=== PATIENT | male | born 1995 | race Caucasian/White ===

== ENCOUNTER 2017-06-23 17:44 | Emergency (ER) | payer MEDICAID ==
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
[2017-06-23 18:00] VITALS: BMI 25.0
[2017-06-23 18:13] VITALS: RESP 18; TEMP 99.3; O2SAT 100
[2017-06-23 19:18] LABS: BASO # 0.01 K/mm3 (0.0-2.0); BASO % 0.2 % (0.0-3.0); EOS # 0.1 (0.0-0.7); EOS % 0.8 % (1.5-5.0); GRAN # 4.75 (1.4-6.5); GRAN % 76.4 % (50.0-68.0); HEMOGLOBIN 15.1 g/dL (14.0-18.0); LYMPH % 16.6 % (22.0-35.0); MEAN CELL VOLUME 78.6 fl (80.0-105.0); MEAN CORPUSCULAR HGB CONC 34.3 g/dl (31.0-37.0); MEAN PLATELET VOLUME 10.3 fl (7.0-11.0); MONO # 0.4 (0.1-0.6); RBC 5.6 10^6/uL (3.5-6.1); RED CELL DISTRIBUTION WIDTH 13.6 % (11.5-14.5); WHITE BLOOD COUNT 6.2 10^3/ul (4.5-11.0)
[2017-06-23 19:24] LABS: ACETAMINOPHEN < 10.0 ug/ml (10.0-20.0); SALICYLATE < 1 mg/dL (2.0-20.0)
[2017-06-23 19:26] LABS: ALB/GLOB RATIO 1.3 (1.1-1.8); ALBUMIN 4.7 g/dL (3.0-4.8); ALT/SGPT 63 U/L (7-56); AST/SGOT 39 U/L (17-59); BLOOD UREA NITROGEN 14 mg/dL (7-21); CALCIUM 9.8 mg/dL (8.4-10.5); GFR AFRICAN-AMERICAN > 60; GFR NON-AFRICAN AMERICAN > 60
[2017-06-23 19:40] LABS: URINE BILIRUBIN NEGATIVE (NEGATIVE); URINE BLOOD NEGATIVE (NEGATIVE); URINE GLUCOSE (UA) NEGATIVE (NEGATIVE); URINE LEUKOCYTE ESTERASE NEGATIVE Leu/uL (NEGATIVE); URINE PROTEIN NEGATIVE mg/dL (<30 mg/dL); URINE UROBILINOGEN 0.2 E.U./dL (<1 E.U./dL)
[2017-06-23 19:48] LABS: URINE APPEARANCE CLEAR (CLEAR); URINE COLOR YELLOW (YELLOW)
[2017-06-23 19:56] LABS: BARBITURATES, UR NEGATIVE (NEGATIVE); BENZODIAZEPINES, UR NEGATIVE (NEGATIVE); OPIATES, UR NEGATIVE (NEGATIVE); PHENCYCLIDINE, UR NEGATIVE (NEGATIVE)
[2017-06-23 20:34] VITALS: BP 110/89; PULSE 95
== END 2017-06-23 20:10 | disposition home or self-care (01) ==
LOC: ED 17:44
DX: F43.9 Reaction to severe stress, unspecified (principal)

== ENCOUNTER 2017-11-03 21:38 | Emergency (ER) | payer MEDICAID ==
[2017-11-03 21:50] VITALS: BMI 25.5
--- NOTE | 2017-11-03 22:07 | ED PDOC ---
Arrival/HPI - General Chief Complaint: Weakness/Neurological Deficit Time Seen by Provider: 11/03/17 21:50 Historian: Patient - History of Present Illness Narrative History of Present Illness (Text): 11/03/17 22:07 Ashish Malin is a 22 year old male, electronic cigarette smoker, with no significant past medical history, who presents to the ED complaining of dizziness. Patient states he has been feeling increasingly dizzy, nauseous, and light-headed for the past 2 days. Patient notes he had 1 syncopal episode yesterday while at work and 2 near-syncopal episodes today. Patient also notes he has been feeling anxious and reports tingling sensation in his fingers. Patient denies any fever, chills, chest pain, shortness of breath, abdominal pain, vomiting, diarrhea, urinary symptoms, back pain, neck pain, headache, or any other complaints. Time/Duration: < week (2 days) Symptom Onset: Gradual Symptom Course: Unchanged Activities at Onset: Light Context: Home Past Medical History - Provider Review Nursing Documentation Reviewed: Yes - Past History Past History: No Previous - Infectious Disease Hx of Infectious Diseases: None - Tetanus Immunization Tetanus Immunization: Unknown - Psychiatric Hx Depression: No Hx Emotional Abuse: No Hx Physical Abuse: No Hx Substance Use: No - Past Surgical History Past Surgical History: No Previous - Anesthesia Hx Anesthesia: No - Suicidal Assessment Feels Threatened In Home Enviroment: No Family/Social History - Physician Review Nursing Documentation Reviewed: Yes Family/Social History: Unknown Family HX Smoking Status: Never Smoked Hx Alcohol Use: No Hx Substance Use: No Hx Substance Use Treatment: No Allergies/Home Meds Allergies/Adverse Reactions: Allergies No Known Allergies Allergy (Verified 12/25/15 11:30) Home Medications: Home Meds Medication Instructions Recorded Confirmed No Known Home Med 11/04/17 11/04/17 Review of Systems - Physician Review All systems were reviewed & negative as marked: Yes - Review of Systems Constitutional: Other (+light-headedness) Eyes: Normal ENT: Normal Respiratory: Normal. absent: SOB, Cough Cardiovascular: Syncope, Other (+near-syncopal) Gastrointestinal: Nausea. absent: Abdominal Pain, Diarrhea, Vomiting Genitourinary Male: Normal. absent: Dysuria, Frequency, Hematuria, Urinary Output Changes Musculoskeletal: Normal. absent: Back Pain, Neck Pain Skin: Normal. absent: Rash Neurological: Dizziness, Other (+tingling in hands) Endocrine: Normal Hemo/Lymphatic: Normal Psychiatric: Normal Physical Exam Vital Signs Reviewed: Yes Vital Signs Temp Pulse Resp BP Pulse Ox 11/04/17 00:00 52 L 18 100/63 100 11/03/17 22:11 98 F 60 18 116/68 100 Temperature: Afebrile Blood Pressure: Normal Pulse: Regular Respiratory Rate: Normal Appearance: Positive for: Well-Appearing, Non-Toxic, Comfortable Pain Distress: None Mental Status: Positive for: Alert and Oriented X 3 - Systems Exam Head: Present: Atraumatic, Normocephalic Pupils: Present: PERRL Extroacular Muscles: Present: EOMI Conjunctiva: Present: Normal Mouth: Present: Moist Mucous Membranes Neck: Present: Normal Range of Motion. No: Meningeal Signs, MIDLINE TENDERNESS , Paraspinal Tenderness Respiratory/Chest: Present: Clear to Auscultation, Good Air Exchange. No: Respiratory Distress, Accessory Muscle Use Cardiovascular: Present: Regular Rate and Rhythm, Normal S1, S2. No: Murmurs Abdomen: No: Tenderness, Distention, Peritoneal Signs Back: Present: Normal Inspection. No: CVA Tenderness, Midline Tenderness, Paraspinal Tenderness Upper Extremity: Present: Normal Inspection. No: Cyanosis, Edema Lower Extremity: Present: Normal Inspection. No: Edema Neurological: Present: GCS=15, CN II-XII Intact, Speech Normal Skin: Present: Warm, Dry, Normal Color. No: Rashes Psychiatric: Present: Alert, Oriented x 3, Normal Insight, Normal Concentration Medical Decision Making ED Course and Treatment: 11/03/17 22:07 Impression: 22 year old male complaining of dizziness, nausea, light-headedness, and syncope. Plan: -- CT Head w/o contrast -- EKG -- Labs, troponin, alcohol level -- Urine drug screen -- IV fluids -- Zofran -- Reassess and disposition Prior Visits: Notes and results from previous visits were reviewed. Progress Notes: Reviewed EKG, NSR at [address]-segment elevations or depressions, no T-wave inversions, normal intervals. 11/04/17 00:11 CT Head reviewed, shows: BRAIN: Incidentally noted is cavum septum pellucidum. No hemorrhage. No significant white matter disease. VENTRICLES: Unremarkable. No ventriculomegaly. BONES/JOINTS: Unremarkable. No acute fracture. SOFT TISSUES: Unremarkable. SINUSES: Unremarkable as visualized. No acute sinusitis. MASTOID AIR CELLS: Unremarkable as visualized. No mastoid effusion. IMPRESSION: No acute findings. 11/04/17 01:12 On reevaluation the patient feels better and is in no acute distress. I have discussed the results and plan with the patient, who expresses understanding. Patient given the opportunity to ask question, all questions were answered and there is agreement with the plan to discharge the patient home. Patient is stable for discharge. Patient was instructed to follow up with physician/clinic in 1-2 days or return if symptoms persist/worsen or new concerning symptoms arise. - Lab Interpretations Lab Results: 11/03/17 23:09 11/03/17 23:09 Lab Results 11/03/17 23:31: Urine Opiates Screen Negative, Urine Methadone Screen Negative, Ur Barbiturates Screen Negative, Ur Phencyclidine Scrn Negative, Ur Amphetamines Screen Negative, U Benzodiazepines Scrn Negative, U Oth Cocaine Metabols Negative, U Cannabinoids Screen Negative 11/03/17 23:09: Alcohol, Quantitative < 10 11/03/17 23:09: Sodium 142, Potassium 3.9, Chloride 104, Carbon Dioxide 27, Anion Gap 16, BUN 11, Creatinine 0.7 L, Est GFR ( Amer) > 60, Est GFR ( Non-Af Amer) > 60, Random Glucose 79, Calcium 9.4, Total Bilirubin 0.2, AST 24, ALT 28, Alkaline Phosphatase 46, Troponin I < 0.01, Total Protein 7.9, Albumin 4.7, Globulin 3.2, Albumin/Globulin Ratio 1.5 11/03/17 23:09: WBC 4.5 D, RBC 4.97, Hgb 13.1 L D, Hct 38.5 L, MCV 77.5 L, MCH 26.4, MCHC 34.0, RDW 13.3, Plt Count 198, MPV 11.4 H, Gran % 36.8 L, Lymph % ( Auto) 53.8 H, [place] % (Auto) 5.6, Eos % (Auto) 2.9, Baso % (Auto) 0.9, Gran # 1.64, Lymph # (Auto) 2.4, [place] # (Auto) 0.3, Eos # (Auto) 0.1, Baso # (Auto) 0.04 11/03/17 23:01: POC Glucose (mg/dL) 80 I have reviewed the lab results: Yes - RAD Interpretation Radiology Orders: 11/03/17 22:23 HEAD W/O CONTRAST [CT] Stat Forensic Ballistics Expert: Radiologist - EKG Interpretation Interpreted by ED Physician: Yes Type: 12 lead EKG - Medication Orders Current Medication Orders: Discontinued Medications Sodium Chloride (Sodium Chloride 0.9%) 1,000 mls @ 80 mls/hr IV .[id number] [id number] Last Admin: 11/03/17 22:39 Dose: 80 mls/hr eMAR Start Stop Document 11/03/17 22:39 RG (Rec: 11/03/17 23:48 RG [id number]) Intravenous Solution Start Date 11/03/17 Start Time 22:39 Ondansetron HCl (Zofran Inj) 4 mg IVP STAT STA Stop: 11/03/17 22:25 Last Admin: 11/03/17 22:40 Dose: 4 mg IVP Administration Document 11/03/17 22:40 RG (Rec: 11/03/17 23:49 RG [id number]) Charges for Administration # of IVP Administrations 1 - Scribe Statement The provider has reviewed the documentation as recorded by the Payal Hair Provider Scribe Attestation: All medical record entries made by the Scribe were at my direction and personally dictated by me. I have reviewed the chart and agree that the record accurately reflects my personal performance of the history, physical exam, medical decision making, and the department course for this patient. I have also personally directed, reviewed, and agree with the discharge instructions and disposition. Disposition/Present on Arrival - Present on Arrival Any Indicators Present on Arrival: No History of DVT/PE: No History of Uncontrolled Diabetes: No Urinary Catheter: No History of Decub. Ulcer: No History Surgical Site Infection Following: None - Disposition Have Diagnosis and Disposition been Completed?: Yes Diagnosis: Anxiety Disposition: HOME/ ROUTINE Disposition Time: 01:13 Condition: GOOD Discharge Instructions (ExitCare): Anxiety, Adult (DC) Referrals: [facility] at [facility] [Outside] - Follow up with primary Forms: [employer] (Bengali)
[2017-11-03 22:12] VITALS: RESP 18; TEMP 98; O2SAT 100
[2017-11-03] MEDS ORDERED: Sodium Chloride 0.9% 1,000 ML IV SCH (22:30)
[2017-11-03 23:29] LABS: ALB/GLOB RATIO 1.5 (1.1-1.8); ALBUMIN 4.7 g/dL (3.0-4.8); ALT/SGPT 28 U/L (7-56); AST/SGOT 24 U/L (17-59); BLOOD UREA NITROGEN 11 mg/dL (7-21); CALCIUM 9.4 mg/dL (8.4-10.5); GFR AFRICAN-AMERICAN > 60; GFR NON-AFRICAN AMERICAN > 60
[2017-11-03 23:39] LABS: TROPONIN I < 0.01 ng/mL
[2017-11-03 23:51] LABS: BASO # 0.04 K/mm3 (0.0-2.0); BASO % 0.9 % (0.0-3.0); EOS # 0.1 (0.0-0.7); EOS % 2.9 % (1.5-5.0); GRAN # 1.64 (1.4-6.5); GRAN % 36.8 % (50.0-68.0); LYMPH # 2.4 (1.2-3.4); LYMPH % 53.8 % (22.0-35.0); MEAN CELL VOLUME 77.5 fl (80.0-105.0); MEAN CORPUSCULAR HEMOGLOBIN 26.4 pg (25.0-35.0); MEAN PLATELET VOLUME 11.4 fl (7.0-11.0); MONO # 0.3 (0.1-0.6); MONO % 5.6 % (1.0-6.0); RBC 4.97 10^6/uL (3.5-6.1); RED CELL DISTRIBUTION WIDTH 13.3 % (11.5-14.5); WHITE BLOOD COUNT 4.5 10^3/ul (4.5-11.0)
[2017-11-03 23:53] LABS: HEMOGLOBIN 13.1 g/dL (14.0-18.0)
[2017-11-04 00:20] VITALS: BP 100/63; PULSE 52
[2017-11-04 00:24] LABS: BARBITURATES, UR NEGATIVE (NEGATIVE); BENZODIAZEPINES, UR NEGATIVE (NEGATIVE); OPIATES, UR NEGATIVE (NEGATIVE); PHENCYCLIDINE, UR NEGATIVE (NEGATIVE)
--- NOTE | 2017-11-04 08:10 | CT ---
Date of service: 11/03/2017 PROCEDURE: CT HEAD WITHOUT CONTRAST. HISTORY: dizzy COMPARISON: None available. TECHNIQUE: Axial computed tomography images were obtained through the head/brain without intravenous contrast. Radiation dose: Total exam DLP = 934 mGy-cm. This CT exam was performed using one or more of the following dose reduction techniques: Automated exposure control, adjustment of the mA and/or kV according to patient size, and/or use of iterative reconstruction technique. FINDINGS: HEMORRHAGE: No intracranial hemorrhage. BRAIN: No mass effect or edema. No atrophy or chronic microvascular ischemic changes. VENTRICLES: Unremarkable. No hydrocephalus. CALVARIUM: Unremarkable. PARANASAL SINUSES: Unremarkable as visualized. No significant inflammatory changes. MASTOID AIR CELLS: Unremarkable as visualized. No inflammatory changes. OTHER FINDINGS: The report concurs with the preliminary [facility] report IMPRESSION: No acute findings
--- NOTE | 2017-11-04 10:11 | CARD ---
APPROVED REPORT Date of service: 11/03/2017 EKG Measurement Heart [id number] <Conclusion> Normal sinus rhythm Normal ECG
== END 2017-11-04 01:10 | disposition home or self-care (01) ==
LOC: ED 21:38
DX: F41.9 Anxiety disorder, unspecified (principal)
CPT/HCPCS: 70450; 80053; 80320; 80324; 80345; 80346; 80349; 80353; 80358; 80361; 82948; 83992; 84484; 85025; 93005; 96374; 99285; J2405; J7030

== ENCOUNTER 2018-07-30 01:03 | Emergency (ER) | payer MEDICAID ==
[2018-07-30 01:20] VITALS: BMI 23.5
[2018-07-30 01:21] VITALS: RESP 18; TEMP 98.7; O2SAT 100
--- NOTE | 2018-07-30 01:49 | ED PDOC ---
Arrival/HPI - General Chief Complaint: Trauma Historian: Patient - History of Present Illness Narrative History of Present Illness (Text): 07/30/18 01:37 A 22 year old male with no significant past medical history presents to the emergency department s/p fall with associated headache and dizziness for the past 2 hours after hitting his head on the floor when he was wrestling with a friend. Patient states his tailbone is also bruised from the injury. Patient states he did not lose consciousness and notes he remembers everything that happened. Patient denies any fever, chills, vision changes, bleeding, unstable gait, shortness of breath, chest pain, nausea, vomiting, weakness, urinary symptoms, back pain, neck pain, or any other complaints. Primary Care Provider: Charlie Ren APN Time/Duration: 1-3 hours Symptom Onset: Sudden Activities at Onset: Significant (wrestling) Context: Home Past Medical History - Provider Review Nursing Documentation Reviewed: Yes - Past History Past History: No Previous - Infectious Disease Hx of Infectious Diseases: None - Tetanus Immunization Tetanus Immunization: Unknown - Psychiatric Hx Depression: No Hx Emotional Abuse: No Hx Physical Abuse: No Hx Substance Use: No - Past Surgical History Past Surgical History: No Previous - Anesthesia Hx Anesthesia: No Hx Anesthesia Reactions: No Hx Malignant Hyperthermia: No - Suicidal Assessment Feels Threatened In Home Enviroment: No Family/Social History - Physician Review Nursing Documentation Reviewed: Yes Family/Social History: No Known Family HX Smoking Status: Current Some Days Smoker Hx Alcohol Use: Yes Frequency of alcohol use: Socially Hx Substance Use: No Hx Substance Use Treatment: No Allergies/Home Meds Allergies/Adverse Reactions: Allergies No Known Allergies Allergy (Verified 11/29/17 00:27) Home Medications: Home Meds Medication Instructions Recorded Confirmed No Known Home Med 11/04/17 07/30/18 Review of Systems - Physician Review All systems were reviewed & negative as marked: Yes - Review of Systems Constitutional: absent: Fevers, Other (chills) Eyes: absent: Vision Changes Respiratory: absent: SOB Gastrointestinal: absent: Nausea, Vomiting Genitourinary Male: absent: Urinary Output Changes Musculoskeletal: Other (bruised tailbone). absent: Back Pain, Neck Pain Skin: absent: Other (bleeding) Neurological: Headache, Dizziness. absent: Gait Changes, Other (weakness) Physical Exam Vital Signs Reviewed: Yes Vital Signs Temp Pulse Resp BP Pulse Ox 07/30/18 01:20 98.7 F 73 18 127/55 L 100 Temperature: Afebrile Blood Pressure: Hypertensive Pulse: Regular Respiratory Rate: Normal Appearance: Positive for: Well-Appearing, Non-Toxic Mental Status: Positive for: Alert and Oriented X 3 - Systems Exam Head: Present: Atraumatic, Normocephalic, Contusion (small contusion to occiput; no obvious abrasion or laceration noted to face). No: Other (no obvious trauma) Pupils: Present: PERRL Extroacular Muscles: Present: EOMI Conjunctiva: Present: Normal Respiratory/Chest: Present: Clear to Auscultation, Good Air Exchange. No: Respiratory Distress, Accessory Muscle Use Cardiovascular: Present: Regular Rate and Rhythm, Normal S1, S2. No: Murmurs Neurological: Present: GCS=15, CN II-XII Intact, Speech Normal Skin: Present: Warm, Dry, Normal Color. No: Rashes Psychiatric: Present: Alert, Oriented x 3, Normal Insight, Normal Concentration Medical Decision Making ED Course and Treatment: 07/30/18 01:37 Impression: 22 year old male presenting to the emergency room s/p fall with headache and dizziness. Plan: -- Motrin -- Reglan -- Reassess and disposition Prior Visits: Notes and results from previous visits were reviewed. Progress Notes: 07/30/18 02:15 Upon re-evaluation, patient states he is feeling better. Patient is stable for discharge. - Medication Orders Current Medication Orders: Discontinued Medications Ibuprofen (Motrin Tab) 600 mg PO STAT STA Stop: 07/30/18 01:31 Metoclopramide HCl (Reglan) 10 mg PO STAT STA Stop: 07/30/18 01:31 - Scribe Statement The provider has reviewed the documentation as recorded by the Payal Richards All medical record entries made by the Scribe were at my direction and personally dictated by me. I have reviewed the chart and agree that the record accurately reflects my personal performance of the history, physical exam, medical decision making, and the department course for this patient. I have also personally directed, reviewed, and agree with the discharge instructions and disposition. Disposition/Present on Arrival - Present on Arrival Any Indicators Present on Arrival: No History of DVT/PE: No History of Uncontrolled Diabetes: No Urinary Catheter: No History of Decub. Ulcer: No History Surgical Site Infection Following: None - Disposition Have Diagnosis and Disposition been Completed?: Yes Diagnosis: Head contusion Disposition: HOME/ ROUTINE Disposition Time: 02:16 Patient Plan: Discharge Condition: IMPROVED Discharge Instructions (ExitCare): Minor Head Injury (DC) Print Language: [place] CITIZEN Additional Instructions: All medical record entries made by the Scribe were at my direction and personally dictated by me. I have reviewed the chart and agree that the record accurately reflects my personal performance of the history, physical exam, medical decision making, and the department course for this patient. I have also personally directed, reviewed, and agree with the discharge instructions and disposition. Please monitor for any changes in concentration, visual disturbances, or somnolence Please follow up with your PCP in 1 week Referrals: [facility] [Outside] - Follow up with primary Sara Mejía MD [Medical Doctor] - Follow up with primary Forms: [employer] ([place]ayan), WORK NOTE, SCHOOL NOTE
[2018-07-30 02:37] VITALS: BP 125/84; PULSE 75
== END 2018-07-30 02:32 | disposition home or self-care (01) ==
LOC: ED 01:03
DX: S00.83XA Contusion of other part of head, initial encounter (principal); W18.30XA Fall on same level, unspecified, initial encounter; Y93.72 Activity, wrestling